=== PATIENT | male | born 1985 | race Caucasian/White ===

== ENCOUNTER 2017-03-10 10:16 | Emergency (ER) | payer BC, OTHER ==
--- NOTE | 2017-03-10 11:00 | EDM.PDOC ---
ED HPI GENERAL MEDICAL PROBLEM - General Chief Complaint: General Stated Complaint: COLD AND COUGHING Time Seen by Provider: 03/10/17 10:59 Source of Information: Reports: Patient History Limitations: Reports: No Limitations - History of Present Illness INITIAL COMMENTS - FREE TEXT/NARRATIVE: HISTORY AND PHYSICAL: History of present illness: [Patient comes to the emergency room complaining of dry hacking cough for the past week. His cough worsened and he developed body aches, fever and chills for the past 2 days. He feels significantly worse today than he did earlier this week. He just got back several days ago from spending time with his son who lives out of state. 2 days ago his son was diagnosed with influenza A. Patient has taken Tylenol and ibuprofen which has provided some improvement in his symptoms. He denies headache and earaches. No sore throat. Cough is productive for clear colored phlegm. No abdominal jarad,n nausea, vomiting. No change with bowel and bladder. He is a smoker. He has no other complaints or concerns at this time.] Review of systems: As per history of present illness and below otherwise all systems reviewed and negative. Past medical history: As per history of present illness and as reviewed below otherwise noncontributory. Surgical history: As per history of present illness and as reviewed below otherwise noncontributory. Social history: No reported history of drug or alcohol abuse. Family history: As per history of present illness and as reviewed below otherwise noncontributory. Physical exam: HEENT: Atraumatic, normocephalic. TMs are pearly patle and equal bilaterally. Oral mucous membranes are pink and moist. Throat is clear. No erythema or exudate or swelling. Neck is supple. No lymphadenopathy. Lungs: Clear to auscultation, breath sounds equal bilaterally. No wheezing crackles or rales. Heart: S1S2, regular rate and rhythm. Abdomen: Soft, nondistended, nontender. Negative for masses, guarding or rebound. Negative for costovertebral tenderness. Pelvis: Stable nontender. Genitourinary: Deferred. Rectal: Deferred. Extremities: Atraumatic. Neurovascular unremarkable. Neuro: Awake, alert, oriented. Motor and sensory unremarkable throughout. Exam nonfocal. Diagnostics: [Influenza A&B] Impression: [Influenza A] Plan: [Patient notified that influenza A swab is positive and that he is outside the window for Tamiflu. Recommend pushing fluids, get plenty of rest, Tylenol alternating with ibuprofen every 4-6 hours as needed for fever or discomfort. Practice good handwashing. Return to ER as needed as discussed. He is in agreement with today's plan.] Definitive disposition and diagnosis as appropriate pending reevaluation and review of above. Generalized Pain Score (Numeric/FACES): 4 - Related Data Allergies Allergy/AdvReac Type Severity Reaction Status Date / Time morphine Allergy Vomiting Verified 03/10/17 10:35 Home Meds: Home Meds Testosterone [Androgel] 5 mg TOP DAILY 03/10/17 [History] Past Medical History - Past Health History Medical/Surgical History: Denies Medical/Surgical History HEENT History: Reports: None Cardiovascular History: Reports: None Respiratory History: Reports: Asthma, Bronchitis, Recurrent Gastrointestinal History: Reports: None Genitourinary History: Reports: None Neurological History: Reports: None Psychiatric History: Reports: None Endocrine/Metabolic History: Reports: None Hematologic History: Reports: None Immunologic History: Reports: None Oncologic (Cancer) History: Reports: None Dermatologic History: Reports: None - Infectious Disease History Infectious Disease History: Reports: None - Past Surgical History Head Surgeries/Procedures: Reports: None Other Respiratory Surgeries/Procedures: sleep apnea Male Surgical History: Reports: None Other Musculoskeletal Surgeries/Procedures:: tail bone surgery Social & Family History - Tobacco Use Smoking Status *Q: Former Smoker Years of Tobacco use: 10 Used Tobacco, but Quit: Yes Month Tobacco Last Used: 01/30/17 Second Hand Smoke Exposure: No - Caffeine Use Caffeine Use: Reports: Energy Drinks - Alcohol Use Days Per Week of Alcohol Use: 0 - Recreational Drug Use Recreational Drug Use: No ED ROS GENERAL - Review of Systems Review Of Systems: ROS reveals no pertinent complaints other than HPI. ED EXAM, GENERAL - Physical Exam Exam: See Below Course - Vital Signs Last Recorded V/S: Last Vital Signs Temp 97.4 F 03/10/17 10:27 Pulse 90 03/10/17 12:30 Resp 18 03/10/17 12:30 BP 108/70 03/10/17 12:30 Pulse Ox 98 03/10/17 12:30 - Orders/Labs/Meds Orders: Active Orders 24 hr Category Date Time Status RT Aerosol Therapy [RC] ASDIRECTED Care 03/10/17 12:07 Active Meds: Medications Discontinued Medications Generic Name Dose Route Start Last Admin Trade Name Mikayla PRN Reason Stop Dose Admin Albuterol/Ipratropium 3 ml 03/10/17 12:07 03/10/17 12:20 Duoneb 3.0-0.5 Mg/3 Ml NEB 03/10/17 12:08 3 ml ONETIME ONE Administration Departure - Departure Time of Disposition: 12:15 Disposition: Home, Self-Care 01 Condition: Good Clinical Impression: Influenza A, Smoker - Discharge Information Instructions: Influenza, Adult, [id number] Referrals: PCP,None [Primary Care Provider] - Forms: ED Department Discharge Additional Instructions: The following information is given to patients seen in the emergency department who are being discharged to home. This information is to outline your options for follow-up care. We provide all patients seen in our emergency department with a follow-up referral. The need for follow-up, as well as the timing and circumstances, are variable depending upon the specifics of your emergency department visit. If you don't have a primary care physician on staff, we will provide you with a referral. We always advise you to contact your personal physician following an emergency department visit to inform them of the circumstance of the visit and for follow-up with them and/or the need for any referrals to a consulting specialist. The emergency department will also refer you to a specialist when appropriate. This referral assures that you have the opportunity for follow-up care with a specialist. All of these measure are taken in an effort to provide you with optimal care, which includes your follow-up. Under all circumstances we always encourage you to contact your private physician who remains a resource for coordinating your care. When calling for follow-up care, please make the office aware that this follow-up is from your recent emergency room visit. If for any reason you are refused follow-up, please contact the [facility] emergency department at and asked to speak to the emergency department charge nurse. [facility] [address] [place] [id number] Follow-up with her local primary care provider at the clinic listed above in 4- 5 days. Push fluids, such as water and Gatorade to prevent dehydration. Take Robitussin or Delsym cough syrup as needed for cough. Tylenol or ibuprofen as needed for discomfort or fever. Return to ER as needed as discussed. - My Orders Last 24 Hours: My Active Orders 03/10/17 12:07 RT Aerosol Therapy [RC] ASDIRECTED - Assessment/Plan Last 24 Hours: My Active Orders 03/10/17 12:07 RT Aerosol Therapy [RC] ASDIRECTED
[2017-03-10] MEDS ORDERED: Albuterol/Ipratropium 3.0-0.5 MG/3 ML Neb Soln NEB ONE (12:07)
== END 2017-03-10 12:30 | disposition home or self-care (01) ==
LOC: MW.ED 10:16
DX: J10.1 Influenza due to other identified influenza virus with other respiratory manifestations (principal); Z79.899 Other long term (current) drug therapy; Z88.5 Allergy status to narcotic agent; Z87.891 Personal history of nicotine dependence
CPT/HCPCS: 87804; 94640; 99283; 99283-25